=== PATIENT | female | born 1955 | race Caucasian/White ===

== ENCOUNTER 2024-05-19 07:08 | Inpatient (IN) | payer MEDICARE, BC ==
[~2024-05-19] VITALS: Ht 165.1 cm; Wt 85.0 kg
[2024-05-19] MEDS ORDERED: LORazepam 2 MG/ML VIAL ONE (07:09)
[2024-05-19] MEDS ORDERED: LORazepam 2 MG/ML VIAL IV ONE ×2 (07:15→09:30)
[2024-05-19] MEDS ORDERED: LEXAPRO20 MG PO (07:24)
[2024-05-19] MEDS ORDERED: SODIUM CHLORIDE 0.9% 1,000 ML IV PRN (07:30)
[2024-05-19 07:33] LABS: BASOPHILS 0.7 % (0-2); EOSINOPHILS 0.8 % (0-6); HEMATOCRIT 43.8 % (35.0-50.0); HEMOGLOBIN 14.6 g/dL (12.0-18.0); LYMPHOCYTES 27.6 % (24-44); MCH 34.5 (27-36); MCHC 33.5 g/dl (30-36); MCV 103.2 fl (81-99); MONOCYTES 8.3 % (0-12); NEUTROPHILS 62.6 % (39-80); PLATELET COUNT 209 K/uL (140-440); RBC 4.24 M/ul (4.3-5.7); RDW 14.5 (10.5-15.0)
[2024-05-19 07:52] LABS: ALBUMIN 3.3 g/dL (3.4-5.0); ALBUMIN/GLOBULIN RATIO 0.97 (1.1-2.4); ANION GAP 14.3 (7-21); BILIRUBIN, TOTAL 0.4 ng/dL (0.2-1.0); BUN/CREATININE RATIO 16.82 (6.0-28.6); CALCIUM 8.7 mg/dL (8.5-10.1); CREATININE, SERUM 1.07 mg/dL (0.55-1.02); MAGNESIUM 1.8 mg/dL (1.8-2.4); POTASSIUM 3.3 mmol/L (3.5-5.1); PROTEIN, TOTAL 6.7 g/dL (6.4-8.2); TSH, 3RD GENERATION 3.894 uIU/mL (0.358-3.740)
[2024-05-19 09:00] LABS: BILIRUBIN, URINE NEGATIVE (negative); BLOOD/HGB, URINE NEGATIVE (Negative); KETONE, URINE NEGATIVE (Negative); LEUK ESTERASE, URINE NEGATIVE (negative); NITRITE, URINE NEGATIVE (negative)
[2024-05-19 09:08] LABS: BACTERIA, URINE RARE /hpf (negative); CASTS, URINE NONE SEEN \\lpf; COLLECTION TYPE, URINE CLEAN CATCH; CRYSTALS, URINE NONE SEEN (0-1+); EPITHELIAL CELLS, URINE 0 /lpf (0-1+); RED BLOOD CELLS, URINE 0-1 /hpf (0-5); REFLEX CULTURE, URINE No (No); WHITE BLOOD CELLS, URINE 0-1 /HPF (0-5)
[2024-05-19] MEDS ORDERED: levETIRAcetam 500 MG/5 ML VIAL IV ONE (09:30)
[2024-05-19 09:36] LABS: AMPHETAMINES, URINE POSITIVE (NEGATIVE); BARBITURATES, URINE NEGATIVE (NEGATIVE); BENZODIAZEPINE, URINE NEGATIVE (NEGATIVE); BUPRENORPHINE, URINE NEGATIVE (NEGATIVE); CANNABINOID, URINE POSITIVE (NEGATIVE); COCAINE, URINE NEGATIVE (NEGATIVE); ECSTASY, URINE POSITIVE (NEGATIVE); FENTANYL, URINE NEGATIVE (NEGATIVE); METHADONE, URINE NEGATIVE (NEGATIVE); OPIATES, URINE NEGATIVE (NEGATIVE); OXYCODONE, URINE NEGATIVE (NEGATIVE); PHENCYCLIDINE, URINE NEGATIVE (NEGATIVE)
[2024-05-19] MEDS ORDERED: PROCHLORPERAZINE EDISYLATE 10 MG/2 ML VIAL IV PRN (12:30)
[2024-05-19] MEDS ORDERED: ondansetron HCL 4 MG/2 ML VIAL IV PRN (12:30)
[2024-05-19 12:59] VITALS: BP 110/93
[2024-05-19] MEDS ORDERED: GABAPENTIN300 MG PO (13:03)
[2024-05-19] MEDS ORDERED: BUPROPION XL300 MG PO (13:04)
[2024-05-19] MEDS ORDERED: MODAFINIL200 MG PO (13:17)
[2024-05-19] MEDS ORDERED: ESCITALOPRAM OX20 MG PO (13:18)
[2024-05-19] MEDS ORDERED: LEVOTHYROXINE75 MCG PO (13:18)
[2024-05-19] MEDS ORDERED: POTASSIUM CHLO20 ME2 PO (13:19)
[2024-05-19] MEDS ORDERED: FOLIC ACID1 MG PO (13:19)
[2024-05-19] MEDS ORDERED: ATORVASTATIN CA40 MG PO (13:19)
[2024-05-19] MEDS ORDERED: diazePAM 5 MG TAB PO PRN (13:30)
[2024-05-19] MEDS ORDERED: diazePAM 10 MG/2 ML SYR IV PRN (13:30)
[2024-05-19] MEDS ORDERED: THIAMINE HCL 100 MG,FOLIC ACID 1 MG,MULTIVITAMINS 10 ML in SODIUM CHLORIDE 0.9% 1,000 ML IV ONE (13:30)
[2024-05-19] MEDS ORDERED: LORazepam 2 MG/ML VIAL IV/IM PRN (13:45)
[2024-05-19] MEDS ORDERED: LORazepam 1 MG TAB PO PRN (13:45)
[2024-05-19] MEDS ORDERED: POTASSIUM CHLORIDE 40 MEQ,LIDOCAINE HCL 1% 40 MG in DEXTROSE 5% 250 ML IV ONE (14:00)
[2024-05-19] MEDS ORDERED: VITAMIN B-121000 MCG PO (15:47)
[2024-05-19 16:14] VITALS: BP 147/89
[2024-05-19] MEDS ORDERED: PREVACID 24HR15 MG PO (16:54)
[2024-05-19] MEDS ORDERED: VITAMIN B-1100 MG PO (16:54)
[2024-05-19] MEDS ORDERED: TIZANIDINE HCL2 MG PO (16:54)
[2024-05-19] MEDS ORDERED: VALERIAN ROOT500 MG PO (16:55)
[2024-05-19] MEDS ORDERED: MELATONIN12 MG PO (16:55)
[2024-05-19] MEDS ORDERED: MULTI VITAMIN1 EACH PO (16:56)
[2024-05-19 17:52] VITALS: BP 127/66
[2024-05-19 20:00] VITALS: BP 140/97
[2024-05-19 21:00] VITALS: BP 141/85
[2024-05-19 22:00] VITALS: BP 133/69
[2024-05-20] VITALS (18 sets, daily range): BP systolic 87–139; BP diastolic 46–95
[2024-05-20 05:23] LABS: BASOPHILS 0.6 % (0-2); EOSINOPHILS 0.9 % (0-6); HEMATOCRIT 41.4 % (35.0-50.0); HEMOGLOBIN 13.6 g/dL (12.0-18.0); LYMPHOCYTES 19.1 % (24-44); MCH 34.2 (27-36); MCHC 32.9 g/dl (30-36); MCV 103.8 fl (81-99); MONOCYTES 6.1 % (0-12); NEUTROPHILS 73.3 % (39-80); PLATELET COUNT 152 K/uL (140-440); RBC 3.99 M/ul (4.3-5.7); RDW 14.3 (10.5-15.0)
[2024-05-20 05:39] LABS: ALBUMIN 2.8 g/dL (3.4-5.0); ALBUMIN/GLOBULIN RATIO 0.93 (1.1-2.4); ANION GAP 9.6 (7-21); BILIRUBIN, TOTAL 0.6 ng/dL (0.2-1.0); BUN/CREATININE RATIO 8.69 (6.0-28.6); CALCIUM 8.3 mg/dL (8.5-10.1); CHOLESTEROL/HDL RATIO 4.4; CREATININE, SERUM 0.69 mg/dL (0.55-1.02); MAGNESIUM 1.9 mg/dL (1.8-2.4); PHOSPHORUS, INORGANIC 3.7 mg/dL (2.5-4.9); POTASSIUM 3.6 mmol/L (3.5-5.1); PROTEIN, TOTAL 5.8 g/dL (6.4-8.2)
[2024-05-20] MEDS ORDERED: FOLIC ACID 1 MG/0.2 ML ML IV SCH (10:30)
[2024-05-20] MEDS ORDERED: THIAMINE HCL 200 MG/2 ML VIAL IV SCH (10:45)
[2024-05-20] MEDS ORDERED: PHARMACY RENAL DOSE ADJUSTMENT 1 DOSE MISC PO SCH (12:00)
[2024-05-21] VITALS (7 sets, daily range): BP systolic 106–127; BP diastolic 50–80
[2024-05-21 05:35] LABS: BASOPHILS 0.6 % (0-2); EOSINOPHILS 1.2 % (0-6); HEMATOCRIT 44.2 % (35.0-50.0); HEMOGLOBIN 15.1 g/dL (12.0-18.0); LYMPHOCYTES 24.3 % (24-44); MCH 34.8 (27-36); MCHC 34.1 g/dl (30-36); MCV 102.1 fl (81-99); MONOCYTES 6.5 % (0-12); NEUTROPHILS 67.4 % (39-80); PLATELET COUNT 182 K/uL (140-440); RBC 4.33 M/ul (4.3-5.7); RDW 14.3 (10.5-15.0)
[2024-05-21 06:32] LABS: ANION GAP 10.5 (7-21); BUN/CREATININE RATIO 10.12 (6.0-28.6); CALCIUM 8.4 mg/dL (8.5-10.1); CREATININE, SERUM 0.79 mg/dL (0.55-1.02); MAGNESIUM 1.7 mg/dL (1.8-2.4); POTASSIUM 3.5 mmol/L (3.5-5.1)
[2024-05-21] MEDS ORDERED: MAGNESIUM SULFATE 4 GM/100 ML BAG IV ONE (07:30)
[2024-05-21] MEDS ORDERED: FOLIC ACID 5 MG IV SCH (09:00)
[2024-05-21] MEDS ORDERED: THIAMINE HCL IV SCH ×2 (09:00)
[2024-05-21] MEDS ORDERED: FOLIC ACID IV SCH (09:00)
[2024-05-21] MEDS ORDERED: [UNRECOGNIZED DRUG - OTHER] IV SCH (09:00)
[2024-05-21] MEDS ORDERED: DEXTROSE 5% IV SCH ×2 (09:00)
[2024-05-21] MEDS ORDERED: MAGNESIUM SULFATE 100 ML IV ONE (09:57)
[2024-05-22 05:11] VITALS: BP 113/71
[2024-05-22 05:30] VITALS: BP 113/71
[2024-05-22] MEDS ORDERED: ACETAMINOPHEN 500 MG TAB PO PRN (05:30)
[2024-05-22 05:40] LABS: BASOPHILS 0.3 % (0-2); EOSINOPHILS 1.2 % (0-6); HEMATOCRIT 44.6 % (35.0-50.0); HEMOGLOBIN 15.3 g/dL (12.0-18.0); LYMPHOCYTES 27.1 % (24-44); MCH 35.5 (27-36); MCHC 34.3 g/dl (30-36); MCV 103.4 fl (81-99); MONOCYTES 8.2 % (0-12); NEUTROPHILS 63.2 % (39-80); PLATELET COUNT 187 K/uL (140-440); RBC 4.32 M/ul (4.3-5.7); RDW 14.4 (10.5-15.0)
[2024-05-22 05:50] LABS: ANION GAP 8.7 (7-21); BUN/CREATININE RATIO 9.87 (6.0-28.6); CALCIUM 8.7 mg/dL (8.5-10.1); CREATININE, SERUM 0.81 mg/dL (0.55-1.02); MAGNESIUM 2.3 mg/dL (1.8-2.4); POTASSIUM 3.7 mmol/L (3.5-5.1)
[2024-05-22 09:24] VITALS: BP 117/65
== END 2024-05-22 12:25 | disposition home or self-care (01) | DRG 93 ==
LOC: ED 07:08 → CCU 12:33 → MS 05-21 22:00
PROVIDERS: Emergency Medicine; Internal Medicine; ADMIT Family Medicine; ATTEND Family Medicine
DX: G92.8 Other toxic encephalopathy (principal); F15.10 Other stimulant abuse, uncomplicated; F12.10 Cannabis abuse, uncomplicated; Z66 Do not resuscitate; R56.9 Unspecified convulsions; F10.20 Alcohol dependence, uncomplicated; E87.6 Hypokalemia; G35 Multiple sclerosis; E78.5 Hyperlipidemia, unspecified; E03.9 Hypothyroidism, unspecified; R47.81 Slurred speech; Z98.890 Other specified postprocedural states; Z79.899 Other long term (current) drug therapy; Z90.710 Acquired absence of both cervix and uterus; Z79.890 Hormone replacement therapy
CPT/HCPCS: 36415; 70450; 70496; 70498; 70551; 71045; 80048; 80053; 80061; 80307; 81001; 83036; 83690; 83735; 84100; 84439; 84443; 85025; 94760; 97162; A9270; G0480; J1953; J2060; J3411; J3475; J3480; J3490; J7030; J7060; Q3014; Q9967